=== PATIENT | male | born 1940 | race Caucasian/White ===

== ENCOUNTER → 2023-04-23 | Outpatient (CLI) | payer OTHER | LOC: LAB SHORT 14:42 → LAB 14:42 → LAB SHORT 04-30 14:37 | DX: C44.399 Other specified malignant neoplasm of skin of other parts of face (principal) | CPT/HCPCS: 88341; 88342 ==

== ENCOUNTER → 2024-03-31 | Outpatient (CLI) | payer OTHER ==
[~2024-03-31] MED LIST: BUPR75 PO; BUSP10 PO; CLON.5 PO; CLOP75 PO; DICY20 PO; OMEP20ER PO; VITAMIN D310 MC1 PO
== END ==
LOC: LAB 18:11 → LAB SHORT 18:11
DX: L08.9 Local infection of the skin and subcutaneous tissue, unspecified (principal)
CPT/HCPCS: 87070; 87205